=== PATIENT | male | born 1965 | race Caucasian/White ===

== ENCOUNTER 2018-11-15 11:05 | Emergency (ER) | payer MEDICAID ==
[2018-11-15] MEDS ORDERED: LIDOCAINE 2% 20 ML UROJET SYRINGE MM (11:30)
[2018-11-15] MEDS: LIDOCAINE 2% 20 ML UROJET SYRINGE MM (11:31)
== END 2018-11-15 13:24 | disposition home or self-care (01) ==
LOC: E/R 11:05
DX: R33.9 Retention of urine, unspecified (principal)
CPT/HCPCS: 51702; 99283-25

== ENCOUNTER 2018-11-15 16:03 | Emergency (ER) | payer MEDICAID | END 2018-11-15 19:10 | disposition home or self-care (01) | LOC: FTE 16:03 | DX: R39.89 Other symptoms and signs involving the genitourinary system (principal) | CPT/HCPCS: 99283; Z7502 ==